=== PATIENT | female | born 1995 | race African-American/Black ===

== ENCOUNTER 2019-01-27 05:14 | Inpatient (IN) | payer MEDICAID ==
[~2019-01-27] VITALS: Ht 165.1 cm; Wt 86.2 kg
[2019-01-27] MEDS ORDERED: DEXT 5%/LR + PITOCIN 20UNITS/L 1,000 ML IV SCH ×2 (05:20→06:03)
[2019-01-27] MEDS ORDERED: LACTATED RINGERS 1,000 ML IV SCH (05:20)
[2019-01-27] MEDS ORDERED: MISOPROSTOL 100MCG TABLET VG SCH (05:30)
[2019-01-27] MEDS ORDERED: CARBOPROST TROMETHAMINE 250 MCG/ML AMPUL IM PRN (05:30)
[2019-01-27] MEDS ORDERED: METHYLERGONOVINE MALEATE 0.2 MG/ML IM PRN ×2 (05:30→08:30)
[2019-01-27] MEDS ORDERED: LIDOCAINE HCL 1% 20ML VIAL (Pyxis) INJ INFIL SCH (05:30)
[2019-01-27] MEDS ORDERED: RHO(D) IMMUNE GLOBULIN 300 MCG/SYR IM PRN (06:15)
[2019-01-27] MEDS ORDERED: IBUPROFEN 400MG TABLET PO PRN (06:15)
[2019-01-27 06:43] LABS: PARTIAL THROMBOPLASTIN TIME 28.4 sec (23.4-31.0); PROTHROMBIN TIME 9.9 sec (9.6-11.0)
[2019-01-27 06:50] LABS: BASOPHILS % 0.2 % (0.0-2.0); EOSINOPHILS % 1.4 % (0.0-5.0); HEMATOCRIT. 34.3 % (36.0-48.0); HEMOGLOBIN. 11.5 g/dL (12.0-16.0); LYMPHOCYTES % 20.6 % (20.0-50.0); MEAN CORPUSCULAR HEMOGLOBIN 30.2 pg (28.0-32.0); MEAN PLATELET VOLUME 9.1 fl (7.4-10.4); MONOCYTES % 9.9 % (2.0-8.0); NEUTROPHILS % 67.9 % (40.0-76.0); PLATELET 154 x1000/uL (130-400); RED BLOOD CELL COUNT 3.81 mill/uL (4.2-5.4); RED CELL DISTRIBUTION WIDTH 14.8 % (11.6-14.6)
[2019-01-27 06:58] LABS: CHLORIDE 111 mEq/L (98-107)
[2019-01-27 06:59] LABS: HEPATITIS B SURFACE ANTIGEN NEGATIVE
[2019-01-27] MEDS: IBUPROFEN 800MG TABLET PO PRN ×2 (07:24→18:57)
[2019-01-27 08:30] VITALS: BP 98/59
[2019-01-27 09:00] VITALS: BP 94/50
[2019-01-27 15:34] LABS: CLARITY URINE CLOUDY (CLEAR); COLOR URINE RED (YELLOW); KETONES URINE NEGATIVE (NEGATIVE); LEUKOCYTE ESTERASE URINE 1+ (NEGATIVE); NITRITE URINE NEGATIVE (NEGATIVE); OCCULT BLOOD URINE 3+ (NEGATIVE); PROTEIN URINE 1+ (NEGATIVE); SPECIFIC GRAVITY URINE 1.009 (1.005-1.030); UROBILINOGEN URINE 0.2 E.U./dL (0.2-1.0)
[2019-01-27 15:45] LABS: *AMPHETAMINES SCREEN URINE NEGATIVE (NEGATIVE); *BARBITURATES SCREEN URINE NEGATIVE (NEGATIVE); *BENZODIAZEPINES SCREEN URINE NEGATIVE (NEGATIVE); *COCAINE SCREEN URINE NEGATIVE (NEGATIVE); METHADONE URINE SCREEN NEGATIVE (NEGATIVE); OPIATES URINE SCREEN NEGATIVE (NEGATIVE); PHENCYCLIDINE URINE SCREEN NEGATIVE (NEGATIVE)
[2019-01-27 15:46] LABS: CANNABINOID URINE SCREEN NEGATIVE (NEGATIVE)
[2019-01-27 16:20] VITALS: BP 102/50
[2019-01-27 20:00] VITALS: BP 95/65
[2019-01-28 04:15] VITALS: BP 106/68
[2019-01-28 09:11] LABS: BASOPHILS % 0.4 % (0.0-2.0); EOSINOPHILS % 2.3 % (0.0-5.0); HEMATOCRIT. 36.5 % (36.0-48.0); HEMOGLOBIN. 11.8 g/dL (12.0-16.0); LYMPHOCYTES % 18.1 % (20.0-50.0); MEAN CORPUSCULAR HEMOGLOBIN 29.4 pg (28.0-32.0); MEAN CORPUSCULAR VOLUME 90.7 fL (81.0-99.0); MEAN PLATELET VOLUME 8.7 fl (7.4-10.4); MONOCYTES % 7.8 % (2.0-8.0); NEUTROPHILS % 71.4 % (40.0-76.0); PLATELET 151 x1000/uL (130-400); RED BLOOD CELL COUNT 4.03 mill/uL (4.2-5.4); RED CELL DISTRIBUTION WIDTH 15.1 % (11.6-14.6)
[2019-01-28 09:43] VITALS: BP 97/49
[2019-01-28] MEDS: IBUPROFEN 800MG TABLET PO PRN (15:49)
[2019-01-28 15:53] VITALS: BP 99/57
[2019-01-28 20:15] VITALS: BP 96/50
[2019-01-29 04:05] VITALS: BP 112/71
[2019-01-29 07:36] VITALS: BP 93/61
[2019-01-29] MEDS: IBUPROFEN 800MG TABLET PO PRN (08:14)
== END 2019-01-29 13:20 | disposition home or self-care (01) | DRG 560 ==
LOC: OBSVTOIN 05:14 → INTOOBSV 05:14 → 8 EST LDRP 05:14 → EDBD 05:14 → 8EST 08:00
PROVIDERS: ADMIT Obstetrics & Gynecology; ATTEND Obstetrics & Gynecology
PROC: 10D07Z6 Extraction of Products of Conception, Vacuum, Via Natural or Artificial Opening (ICD-10-PCS; principal; 2019-01-27)
PROC: 10907ZC Drainage of Amniotic Fluid, Therapeutic from Products of Conception, Via Natural or Artificial Opening (ICD-10-PCS; 2019-01-27)
PROC: 3E033VJ Introduction of Other Hormone into Peripheral Vein, Percutaneous Approach (ICD-10-PCS; 2019-01-27)
DX: O69.81X0 Labor and delivery complicated by cord around neck, without compression, not applicable or unspecified (principal); Z37.0 Single live birth; Z3A.37 37 weeks gestation of pregnancy
CPT/HCPCS: 36415; 80305; 86592; 86703; 86762; 86850; 86900; 87340; 99281; G0378; J2590